=== PATIENT | female | born 1965 | race Hispanic/Latino ===

== ENCOUNTER 2022-10-06 07:15 | Day surgery (SDC) | payer OTHER ==
[2022-10-05 09:29] VITALS: BMI 35.8
[2022-10-05 11:02] LABS: Hemoglobin 12.2 g/dL (12.0-15.5); Mean Corpuscular HGB CONC 32.4 g/dL (32.0-36.0); Mean Corpuscular Volume 86.4 fl (81.6-98.3); Mean Platelet Volume 10.8 fl (7.4-10.4); Platelet Count 258 10x3/uL (150-450); Red Blood Cell (RBC) Count 4.35 10x6/uL (3.90-5.03); White Blood Cell (WBC) Count 5.2 10x3/uL (3.5-10.5)
[2022-10-06] MEDS ORDERED: Famotidine/PF 20 mg/2ml Vial ONE (07:37)
[2022-10-06] MEDS ORDERED: Gabapentin 300 MG CAP ONE (07:37)
[2022-10-06] MEDS ORDERED: CeleCOXIB 100 MG CAP ONE (07:37)
[2022-10-06] MEDS ORDERED: Lidocaine 1% w/Epinephrine 1:100K 30 ML VIAL ONE (08:59)
[2022-10-06] MEDS ORDERED: Methylene Blue 50 MG/10 ML AMPUL ONE (08:59)
[2022-10-06] MEDS ORDERED: Fentanyl 100 MCG/2 ML VIAL ONE (09:02)
[2022-10-06] MEDS ORDERED: Midazolam HCl 2 mg/2 ml Vial ONE (09:02)
[2022-10-06] MEDS ORDERED: PROPOFOL 20 ML ONE (09:02)
[2022-10-06] MEDS ORDERED: Lidocaine 2% PF 5 ML VIAL ONE (09:03)
[2022-10-06] MEDS ORDERED: Glycopyrrolate 0.2 MG/ML 5 ML SYRINGE ONE (09:03)
[2022-10-06] MEDS ORDERED: Dexamethasone 20 MG/5 ML VIAL ONE (09:03)
[2022-10-06] MEDS ORDERED: Ondansetron PF 4 MG/2 ML Vial ONE (09:03)
[2022-10-06] MEDS ORDERED: Ketorolac Tromethamine 30 MG/ML VIAL ONE (09:04)
[2022-10-06] MEDS ORDERED: CEFAZOLIN 2 GM VIAL ONE (09:20)
== END 2022-10-06 12:10 | disposition home or self-care (01) ==
LOC: CSHSDC 07:15
PROVIDERS: ATTEND Obstetrics & Gynecology
PROC: 0TSD0ZZ Reposition Urethra, Open Approach (ICD-10-PCS; principal; 2022-10-06)
DX: N39.46 Mixed incontinence (principal); Z79.899 Other long term (current) drug therapy; E66.3 Overweight; Z68.35 Body mass index [BMI] 35.0-35.9, adult
CPT/HCPCS: 85027; 86850; 86900; 86901; C1781; J1100; J1885; J2001; J2250; J2405; J2704; J3010; Q9968; S0028